=== PATIENT | female | born 1955 | race Caucasian/White ===

== ENCOUNTER 2020-06-20 05:35 | Day surgery (SDCO) | payer MEDICARE, OTHER ==
[~2020-06-20 05:35] MED LIST: ACYCLOVIR400 MG PO; AMLODIPINE BESY10 MG PO; BUPROPION XL300 MG PO; CARBAMAZEPINE300 MG PO; COZAAR100 MG PO; DEXILANT60 MG PO; DICLOFENAC SODI75 MG PO; DOXEPIN HCL25 MG PO; FERREX 150150 MG PO; FIORICET1 EACH PO; FLUCONAZOLE150 MG PO; GABAPENTIN300 MG PO; LEVOTHYROXINE50 MCG PO; METOPROLOL SUC200 MG PO; MONTELUKAST SOD10 MG PO; PRAZOSIN HCL5 MG PO; ROBAXIN750 MG PO; ROSUVASTATIN CA20 MG PO; SERTRALINE HCL100 MG PO; TOUJEO SOLO INJ 300 SC; VITAMIN D310 MC3 PO
[2020-06-20 07:02] LABS: BUN/CREAT RATIO (CALC) 29.2 RATIO; CREATININE 1.44 mg/dL (0.51-0.95); POTASSIUM 4.5 mmol/L (3.5-5.1)
--- NOTE | 2020-06-20 14:18 | NUR ---
PT. HAS REQUESTED INPT. REHAB AT [facility] IN [facility]. CLINICALS FAXED TO [facility] SO THEY MAY REQUEST AUTHORIZATION.
--- NOTE | 2020-06-20 16:40 | NUR ---
ESAU FROM [facility]IN AT [facility]. SHE NEEDED TO KNOW IF PT. HAD HER COVID VACCINATIONS. PT. STATED THAT SHE HAD HER FIRST SHOT AND THE SECOND ONE IS DUE ON June. ADVISED RIN OF THE INFORNMATION. FAXED RIN THE INFORAMTION REGARDING HER NEG COVID TEST.
[2020-06-21 06:02] LABS: BASOPHIL 0.6 % (0-2); EOSINOPHIL 0.6 % (0-7); HCT 29.8 % (37.0-47.0); HGB 9.6 g/dl (12.5-16.0); LYMPHOCYTE 15.4 % (15-48); MCH 32.7 pg (25.0-31.0); MCHC 32.2 g/dL (32.0-36.0); MCV 101.4 fL (78.0-100.0); MONOCYTE 7.4 % (0-12); MPV 9.7 fL (6.0-9.5); NEUTROPHIL 75.6 % (41-80); NRBC 0; PLT 156 K/uL (150-400); RBC 2.94 M/uL (4.20-5.40); RDW 13.1 % (11.5-14.0); WBC 5.1 K/uL (4.0-10.5)
[2020-06-21 06:43] LABS: BUN/CREAT RATIO (CALC) 29.1 RATIO; CREATININE 1.34 mg/dL (0.51-0.95)
--- NOTE | 2020-06-21 12:46 | NUR ---
CALL REPORT TO [facility] AT [phone] EXT [phone] FAX D/C SUMMARY TO [phone] UNLESS IT IS AFTER 4:00 P.M. THEN FAX TO [phone].
--- NOTE | 2020-06-21 13:03 | NUR ---
FAXMOHSEN GAR/LINDA AT [facility] THE PT. NEG COVID TEST FROM 06/21/2020.
[2020-06-21] MEDS ORDERED: DULCOLAX5 MG PO (13:18)
[2020-06-21] MEDS ORDERED: STIMULANT LAXA1 EACH PO (13:18)
[2020-06-21] MEDS ORDERED: OXYCODONE-ACET1 EAC1 PO (13:18)
[2020-06-21] MEDS ORDERED: TAB-A-VITE TA400 MC1 PO (13:18)
[2020-06-21] MEDS ORDERED: MILK OF MA400 MG/5 M PO (13:18)
[2020-06-21] MEDS ORDERED: LOVENOX40 MG/0.4 SC (13:18)
[2020-06-22] MEDS ORDERED: OXYCODONE-ACET1 EAC1 PO (09:59)
[2020-06-22] MEDS ORDERED: LOVENOX40 MG/0.4 SC (09:59)
[2020-06-22] MEDS ORDERED: ULTRA-LIGHT RO1 EACH XX (10:01)
[2020-06-22] MEDS ORDERED: 3IN1 COMMODE XX (10:01)
--- NOTE | 2020-06-22 10:35 | NUR ---
KATY ADEN AND I MET WITH PT. SHE SIGNED THE CHOICE FORM FOR [facility], [place] FOR RW AND 05/16. AFFLIATIONS EXPLAINED. FAXED INFORMATION TO [employer]. SENT INFO TO [facility] FOR RW AND 05/16. CALLED LAURI IN [place] PT. COST FOR HER LOVONOX IS [phone]. ADVISED PT OF ABOVE INFORMATION.
--- NOTE | 2020-06-22 12:02 | NUR ---
PATIENT GIVEN D/C INSTRUCTIONS, VERBALIZED UNDERSTANDING. REQUESTED PAIN MEDICATION BEFORE D.C AND PATIENT WAS INSTRUCTED THAT SHE CAN HAVE PAIN MEDICATION AT 12:30 THEN CAN BE D/C'D. PATIENT INSTRUCTED THAT SINCE PAIN MEDIACTION WILL BE GIVEN AT 12:30 SHE CANNOT TAKE IT NEXT UNTIL 4:30 PM TODAY. PT VERBALIZED UNDERSTANDING
--- NOTE | 2020-06-22 12:53 | NUR ---
PATIENT HAD A BAG WITH BELONGINGS LEFT IN THEM, AFTER DISCHARGE, CALLED SON WHO CAME TO PICK HER UP AND HE CAME TO PICK THEM UP
== END 2020-06-22 17:00 | disposition home or self-care (01) ==
LOC: FAS 05:35 → FMS 08:55 → FAS 12:00 → FMS 06-21 12:32
PROVIDERS: Anesthesiology; ADMIT Legal Medicine
DX: M17.12 Unilateral primary osteoarthritis, left knee (principal); M21.162 Varus deformity, not elsewhere classified, left knee; I12.9 Hypertensive chronic kidney disease with stage 1 through stage 4 chronic kidney disease, or unspecified chronic kidney disease; E11.22 Type 2 diabetes mellitus with diabetic chronic kidney disease; N18.30 Chronic kidney disease, stage 3 unspecified; E03.9 Hypothyroidism, unspecified; Z20.822 Contact with and (suspected) exposure to COVID-19; Z90.49 Acquired absence of other specified parts of digestive tract; Z98.890 Other specified postprocedural states; Z90.710 Acquired absence of both cervix and uterus; Z88.1 Allergy status to other antibiotic agents; Z88.5 Allergy status to narcotic agent; Z88.2 Allergy status to sulfonamides; Z88.8 Allergy status to other drugs, medicaments and biological substances
CPT/HCPCS: 36415; 73560; 80048; 82962; 85025; 86850; 86900; 86901; 94010; 94762; 97110; 97116; 97162; 97166; 97530-GP; 97535; C1713; C1776; G0378; J0171; J1170; J1650; J2250; J2704; J2795; J3010; J7120; U0002

== ENCOUNTER → 2020-08-08 | Day surgery (SDC) | payer MEDICARE, OTHER ==
[~2020-08-08] MED LIST changes: +3IN1 COMMODE XX; +DULCOLAX5 MG PO; +LOVENOX40 MG/0.4 SC; +MILK OF MA400 MG/5 M PO; +OXYCODONE-ACET1 EAC1 PO; +STIMULANT LAXA1 EACH PO; +TAB-A-VITE TA400 MC1 PO; +ULTRA-LIGHT RO1 EACH XX
[2020-08-08 14:37] LABS: HCT 40.9 % (37.0-47.0); HGB 13.3 g/dl (12.5-16.0); MCH 32.5 pg (25.0-31.0); MCHC 32.5 g/dL (32.0-36.0); MPV 9.2 fL (6.0-9.5); RBC 4.09 M/uL (4.20-5.40); RDW 12.5 % (11.5-14.0); WBC 5.4 K/uL (4.0-10.5)
[2020-08-08 15:04] LABS: CREATININE 1.27 mg/dL (0.51-0.95); POTASSIUM 4.9 mmol/L (3.5-5.1)
== END | disposition home or self-care (01) ==
LOC: FAS 13:45
PROVIDERS: Anesthesiology; Legal Medicine
DX: T81.31XA Disruption of external operation (surgical) wound, not elsewhere classified, initial encounter (principal); I12.9 Hypertensive chronic kidney disease with stage 1 through stage 4 chronic kidney disease, or unspecified chronic kidney disease; E11.22 Type 2 diabetes mellitus with diabetic chronic kidney disease; N18.2 Chronic kidney disease, stage 2 (mild); E78.00 Pure hypercholesterolemia, unspecified; E03.9 Hypothyroidism, unspecified; Z88.1 Allergy status to other antibiotic agents; Z88.0 Allergy status to penicillin; Z88.5 Allergy status to narcotic agent; Z88.2 Allergy status to sulfonamides; Z88.8 Allergy status to other drugs, medicaments and biological substances; Z79.891 Long term (current) use of opiate analgesic; Z79.899 Other long term (current) drug therapy; Z20.822 Contact with and (suspected) exposure to COVID-19
CPT/HCPCS: 36415; 80048; 87070; 87075; 87077; 87186; 87205; J1170; J2250; J2310; J2704; J2795; J3010; J3260; J7120; U0002